=== PATIENT | female | born 1950 | race Caucasian/White ===

== ENCOUNTER → 2016-09-20 | Outpatient (CLI) | payer MEDICARE | LOC: OD 10:00 | PROVIDERS: ATTEND Specialist | DX: R56.9 Unspecified convulsions (principal) | CPT/HCPCS: 36415; 80184 ==

== ENCOUNTER 2017-05-25 13:44 | Emergency (ER) | payer OTHER, MEDICARE ==
--- NOTE | 2017-05-25 14:30 | ER Document Report ---
ED Extremity Problem, Lower - General Mode of Arrival: Ambulatory Information source: Patient TRAVEL OUTSIDE OF THE [place] IN LAST 30 DAYS: No - HPI Patient complains to provider of: Injury, Pain Location: Knee - right Occurred: This morning Where: School Context: Other - see notes above Associated symptoms: Other - see notes above <BROOK PELLETIER - Last Filed: 05/25/17 14:10> <YUDELKA SINGH - Last Filed: 05/25/17 16:27> - General Chief Complaint: Knee Injury Stated Complaint: RIGHT KNEE PAIN Time Seen by Provider: 05/25/17 14:01 Notes: 66 year old female with history of seizures (last seizure in 2003) presents to the ED complaining of right knee injury and pain that occurred earlier this afternoon. Patient was with her PE class and was shuffling on an uneven surface when her shoe caught and she fell on her right knee. Patient was helped up, heard a crunching noise when putting weight on her right leg, and collapsed to the floor. Patient denies being on any blood thinning medications. PCP: Dr. Franc Hernandez (BROOK PELLETIER) Past Medical History - General Information source: Patient - Social History Smoking Status: Never Smoker Chew tobacco use (# tins/day): No Frequency of alcohol use: None Drug Abuse: None Family History: Reviewed & Not Pertinent Neurological Medical History: Reports: Hx Seizures Endocrine Medical History: Reports: Hx Diabetes Mellitus Type 2, Hx Hypothyroidism <BROOK PELLETIER - Last Filed: 05/25/17 14:10> Review of Systems - Review of Systems Constitutional: No symptoms reported EENT: No symptoms reported Cardiovascular: No symptoms reported Respiratory: No symptoms reported Gastrointestinal: No symptoms reported Genitourinary: No symptoms reported Female Genitourinary: No symptoms reported Musculoskeletal: See HPI, Joint pain - right knee Skin: See HPI, Other - right knee abrasion Hematologic/Lymphatic: No symptoms reported Neurological/Psychological: No symptoms reported -: Yes All other systems reviewed and negative <BROOK PELLETIER - Last Filed: 05/25/17 14:10> Physical Exam <BROOK PELLETIER - Last Filed: 05/25/17 14:10> <YUDELKA SINGH - Last Filed: 05/25/17 16:27> - Vital signs Vitals: Temp Pulse Resp BP Pulse Ox 98.2 F 78 16 146/69 H 96 05/25/17 13:50 05/25/17 13:50 05/25/17 13:50 05/25/17 13:50 05/25/17 13:50 - Notes Notes: GENERAL: Alert, interacts well. No acute distress. HEAD: Normocephalic, atraumatic. EYES: Pupils equal, round, and reactive to light. Extraocular movements intact. ENT: Oral mucosa moist, tongue midline. NECK: Full range of motion. Supple. Trachea midline. LUNGS: Clear to auscultation bilaterally, no wheezes, rales, or rhonchi. No respiratory distress. HEART: Regular rate and rhythm. No murmurs, gallops, or rubs. ABDOMEN: Soft, non-tender. Non-distended. EXTREMITIES: No edema, radial and dorsalis pedis pulses 2/4 bilaterally. No cyanosis. Abrasion to the right knee. NEUROLOGICAL: Alert and oriented x3. Normal speech. PSYCH: Normal affect, normal mood. SKIN: Warm, dry, normal turgor. (BROOK PELLETIER) Moderate swelling of the right knee, tender palpation along the distal femur, no tenderness to palpation along the proximal tibia. No gross deformity noted. (YUDELKA SINGH) Course <BROOK PELELTIER - Last Filed: 05/25/17 14:10> <YUDELKA SINGH - Last Filed: 05/25/17 16:27> - Re-evaluation Re-evalutation: 05/25/17 16:22 X-ray shows oblique slightly comminuted fracture of the medial proximal tibia with cephalad extension to the posterior tibial plateau. Ankle x-rays negative. This was discussed with Dr. De who looked at the x-ray and states it is well enough aligned that the patient can be placed in a knee immobilizer and discharged home, call tomorrow to set up an appointment either tomorrow or Monday. (YUDELKA SINGH) - Vital Signs Vital signs: Temp Pulse Resp BP Pulse Ox 98.2 F 78 16 146/69 H 96 05/25/17 13:50 05/25/17 13:50 05/25/17 13:50 05/25/17 13:50 05/25/17 13:50 Procedures - Immobilization Right Knee Pre-Proc Neuro Vasc Exam: Normal Immobilizer type: Knee immobilizer Performed by: PCT Post-Proc Neuro Vasc Exam: Normal, Unchanged from pre-exam Alignment checked and good: Yes <YUDELKA SINGH - Last Filed: 05/25/17 16:27> Discharge <PELLETIERBROOK - Last Filed: 05/25/17 14:10> <YUDELKA SINGH - Last Filed: 05/25/17 16:27> - Discharge Clinical Impression: Posterior tibial plateau fracture Qualifiers: Encounter type: initial encounter Fracture type: closed Laterality: right Qualified Code(s): S82.141A - Displaced bicondylar fracture of right tibia, initial encounter for closed fracture Hypertension Qualifiers: Hypertension type: essential hypertension Qualified Code(s): I10 - Essential ( primary) hypertension Condition: Stable Disposition: HOME, SELF-CARE Additional Instructions: You broke your tibial plateau. This may need surgery. You will need to follow- up with orthopedic surgery as an outpatient. Dr. De has requested that you call their office tomorrow. They will try and see you tomorrow or Monday. They are not certain whether or not you will need surgery yet. It is very important that you wear the knee immobilizing splint continuously, use crutches and do not put any weight on your right leg. Oral Narcotic Medication You have been given a prescription for pain control. This medication is a narcotic. It's best taken with food, as nausea can result if taken on an empty stomach. Don't operate machinery or drive within six hours of taking this medication. Do not combine this medicine with alcohol, or with any medication which can cause sedation (such as cold tablets or sleeping pills) unless you get permission from the physician. Narcotics tend to cause constipation. If possible, drink plenty of fluids and eat a diet high in fiber and fruits. Prescriptions: Oxycodone HCl/Acetaminophen [Percocet 5-325 mg Tablet] 1 - 2 tab PO Q4H PRN #25 tablet PRN Reason: Referrals: BROOKLYN NOLASCO MD [ACTIVE STAFF] - Follow up as needed (Call for an appointment tomorrow, they will try to see you tomorrow or Monday.) Scribe Attestation: 05/25/17 16:27 I personally performed the services described in the documentation, reviewed and edited the documentation which was dictated to the scribe in my presence, and it accurately records my words and actions. (YUDELKA SINGH) Scribe Documentation - Scribe Written by Cherye:: Meena Amor, 05/25/2017 1431 acting as scribe for :: Tamia <BROOK PELLETIER - Last Filed: 05/25/17 14:10>
--- NOTE | 2017-05-25 15:37 | RADIOLOGY REPORT (SQ) ---
EXAM DESCRIPTION: ANKLE RIGHT COMPLETE COMPLETED DATE/TIME: 05/25/2017 3:10 pm REASON FOR STUDY: fall, tibial fracture COMPARISON: None. NUMBER OF VIEWS: Three views. TECHNIQUE: AP, lateral, and oblique radiographic images acquired of the right ankle. LIMITATIONS: None. FINDINGS: MINERALIZATION: Normal. BONES: No acute fracture or dislocation. No worrisome bone lesions. JOINTS: No effusions. SOFT TISSUES: No soft tissue swelling. No foreign body. OTHER: No other significant finding. IMPRESSION: No acute posttraumatic change. TECHNICAL DOCUMENTATION: JOB ID: [id number] [employer]- All Rights Reserved
--- NOTE | 2017-05-25 15:37 | RADIOLOGY REPORT (SQ) ---
EXAM DESCRIPTION: KNEE RIGHT 2 VIEWS COMPLETED DATE/TIME: 05/25/2017 3:10 pm REASON FOR STUDY: fall landed on R knee COMPARISON: None. NUMBER OF VIEWS: Two view. TECHNIQUE: Standing AP and lateral radiographic images acquired of the right knee. LIMITATIONS: None. FINDINGS: BONES: Oblique slightly comminuted fracture medial proximal tibia with cephalad extension to the posterior tibial plateau. JOINT: No effusion. No chondrocalcinosis. OTHER: No other significant finding. IMPRESSION: NEGATIVE STUDY. NO EXPLANATION FOR PAIN. TECHNICAL DOCUMENTATION: JOB ID: [id number]
[2017-05-25] MEDS ORDERED: HYDROMORPHONE HCL INJ/PF 2 MG/ML AMPULE IM ONE (16:20)
[2017-05-25 17:56] VITALS: BP 138/64
== END 2017-05-25 17:53 | disposition home or self-care (01) ==
LOC: ER 13:44
DX: S82.141A Displaced bicondylar fracture of right tibia, initial encounter for closed fracture (principal); I10 Essential (primary) hypertension; W01.0XXA Fall on same level from slipping, tripping and stumbling without subsequent striking against object, initial encounter; Y92.219 Unspecified school as the place of occurrence of the external cause; Y99.0 Civilian activity done for income or pay
CPT/HCPCS: 99284; 96372; 73610; 73560; J1170

== ENCOUNTER 2017-08-09 09:29 | Day surgery (SDC) | payer MEDICARE, OTHER ==
[~2017-08-09 09:29] MED LIST: KETOROLAC TROMETHAMINE 0.45% 4 DROP/0.4 ML DROPERETTE OS PRN
[2017-08-09] MEDS: TETRACAINE HCL 0.5% OPH SOLN 0.6 ML DROPERETTE OS PRN ×3 (09:57→10:27)
[2017-08-09] MEDS: CYCLOPENTOLATE 0.2%/PHENYLEPHRINE 1% OPH SOLN 2 ML OS PRN ×3 (09:57→10:16)
[2017-08-09] MEDS: BESIFLOXACIN HCL 0.6% OPH SUSP 5 ML BOTTLE OS PRN ×3 (09:58→10:44)
[2017-08-09] MEDS: TROPICAMIDE 1% OPH SOLN 3 ML OS PRN ×3 (09:58→10:16)
[2017-08-09] MEDS ORDERED: EPINEPHRINE INJ/PF 1 MG/1 ML AMPULE ONE (10:01)
[2017-08-09] MEDS ORDERED: TOBRAMYCIN SULFATE/DEXAMETH OPH OINTMENT 3.5 GM ONE (10:01)
[2017-08-09] MEDS ORDERED: CHONDR SU A NA/HYALUR INTRAOC KIT (SURGICARE) ONE (10:01)
[2017-08-09] MEDS ORDERED: LIDOCAINE 1% INJ-PF (10 MG/ML) 30 ML SDV ONE (10:01)
[2017-08-09] MEDS ORDERED: MIDAZOLAM 2 MG/2 ML INJ ONE ×2 (10:24)
[2017-08-09] MEDS ORDERED: ONDANSETRON HCL INJ/PF 4 MG/2 ML SDV ONE (10:56)
== END 2017-08-09 11:30 | disposition home or self-care (01) ==
LOC: SC 09:29
PROVIDERS: ATTEND Ophthalmology
DX: H25.12 Age-related nuclear cataract, left eye (principal); E03.9 Hypothyroidism, unspecified; M19.90 Unspecified osteoarthritis, unspecified site; G40.909 Epilepsy, unspecified, not intractable, without status epilepticus; E66.9 Obesity, unspecified; Z68.37 Body mass index [BMI] 37.0-37.9, adult; Z79.899 Other long term (current) drug therapy
CPT/HCPCS: 66984; V2630; J2250; J3490 ×3; A9270; J0171; J2405; 142

== ENCOUNTER 2017-08-23 06:26 | Day surgery (SDC) | payer MEDICARE, OTHER ==
[~2017-08-23 06:26] MED LIST changes: +KETOROLAC TROMETHAMINE 0.45% 4 DROP/0.4 ML DROPERETTE OD PRN; -KETOROLAC TROMETHAMINE 0.45% 4 DROP/0.4 ML DROPERETTE OS PRN
[2017-08-23] MEDS: TROPICAMIDE 1% OPH SOLN 3 ML OD PRN ×3 (06:50→07:10)
[2017-08-23] MEDS: CYCLOPENTOLATE 0.2%/PHENYLEPHRINE 1% OPH SOLN 2 ML OD PRN ×3 (06:50→07:10)
[2017-08-23] MEDS: BESIFLOXACIN HCL 0.6% OPH SUSP 5 ML BOTTLE OD PRN ×4 (06:51→07:50)
[2017-08-23] MEDS: TETRACAINE HCL 0.5% OPH SOLN 0.6 ML DROPERETTE OD PRN ×3 (06:51→07:32)
[2017-08-23] MEDS ORDERED: LIDOCAINE 1% INJ-PF (10 MG/ML) 30 ML SDV ONE (07:07)
[2017-08-23] MEDS ORDERED: TOBRAMYCIN SULFATE/DEXAMETH OPH OINTMENT 3.5 GM ONE (07:07)
[2017-08-23] MEDS ORDERED: EPINEPHRINE INJ/PF 1 MG/1 ML AMPULE ONE (07:07)
[2017-08-23] MEDS ORDERED: CHONDR SU A NA/HYALUR INTRAOC KIT (SURGICARE) ONE (07:07)
[2017-08-23] MEDS ORDERED: MIDAZOLAM 2 MG/2 ML INJ ONE (07:24)
[2017-08-23] MEDS ORDERED: ONDANSETRON HCL INJ/PF 4 MG/2 ML SDV ONE (07:55)
== END 2017-08-23 08:33 | disposition home or self-care (01) ==
LOC: SC 06:26
PROVIDERS: ATTEND Ophthalmology
DX: H25.11 Age-related nuclear cataract, right eye (principal); Z98.42 Cataract extraction status, left eye; E03.9 Hypothyroidism, unspecified; G40.909 Epilepsy, unspecified, not intractable, without status epilepticus; Z79.899 Other long term (current) drug therapy; Z88.6 Allergy status to analgesic agent
CPT/HCPCS: 66984; V2630; J2250; J3490 ×3; A9270; J0171; J2405; 142